=== PATIENT | female | born 1965 ===

== ENCOUNTER 2023-02-22 15:44 | Outpatient (REF) | payer MEDICARE, BC, SELFPAY ==
[2023-02-22 16:58] LABS: Abs Immature Grans 0.03 10^3/uL (0.0-0.06); Absolute Basophil Count 0.05 10^3/uL (0.0-0.2); Absolute Lymphocyte Count 1.92 10^3/uL (1.2-3.4); Absolute Monocyte Count 0.55 10^3/uL (0.1-0.8); Absolute Neutrophil Count 4.87 10^3/uL (1.2-6.7); Basophils % 0.7; Eosinophils % 2.6; HCT 37.3 % (36.0-46.0); HGB 12.2 g/dL (11.2-15.7); Immature Grans % 0.4; Lymphocytes % 25.2; MCH 27.9 pg (27.0-33.0); MCHC 32.7 % (32.0-36.0); MCV 85 fL (80-95); MPV 9.9 fL (8.0-11.0); Monocytes % 7.2; Neutrophils % 63.9; Platelet Count 316 10^3/uL (130-400); RBC 4.38 10^6/uL (3.93-5.22); RDW 13.9 % (11.7-14.6); RDW-SD 43.3 fL; WBC 7.62 10^3/uL (4.4-10.8)
[2023-02-24 07:42] LABS: IgE 56 IU/mL (<158)
[2023-02-27 20:14] LABS: Aspergillus Fumigatus IgE <0.10 kU/L (<0.70); Aspergillus Niger, IgE <0.10 kU/L (<0.70); Bermuda Grass IgE 0.83 kU/L (<0.70); Candida Albicans (Monilia),IgE <0.10 kU/L (<0.70); Cat Epithelium IgE <0.10 kU/L (<0.70); Cedar, IgE 0.36 kU/L (<0.70); Chicken Feathers IgE <0.10 kU/L (<0.70); Cockroach IgE 0.69 kU/L (<0.70); D Farinae IgE 0.23 kU/L (<0.70); D Pteronyssinus IgE <0.10 kU/L (<0.70); Dog Dander IgE <0.10 kU/L (<0.70); Eastern Sycamore IgE 0.92 kU/L (<0.70); Finch Feathers, IgE <0.10 kU/L (<0.70); Giant Ragweed IgE 0.88 kU/L (<0.70); Goat Epithelium IgE <0.10 kU/L (<0.70); Goldenrod IgE 0.71 kU/L (<0.70); Horse Dander, IgE <0.10 kU/L (<0.70); House Dust/Greer Lab, IgE <0.10 kU/L (<0.70); Milk, IgE <0.10 kU/L (<0.70); Milk, Processed, IgE <0.10 kU/L (<0.70); Mouse Serum Protein IgE <0.10 kU/L (<0.70); Oak IgE 0.98 kU/L (<0.70); Penicillium chrysogenum IgE <0.10 kU/L (<0.70); Rabbit Epithelium IgE <0.10 kU/L (<0.70); Silver Birch IgE 0.81 kU/L (<0.70); Spruce, IgE 0.31 kU/L (<0.70)
[2023-02-27 20:28] LABS: Botrytis Cinerea IgE <0.10 kU/L (<0.70); False Ragweed, IgE 0.74 kU/L (<0.70)
== END 2023-02-22 15:45 | disposition home or self-care (01) ==
LOC: LBN 15:44
PROVIDERS: PCP Physician Assistant; Visit Provider Physician Assistant Surgical
DX: J45.909 Unspecified asthma, uncomplicated (principal); E11.9 Type 2 diabetes mellitus without complications
CPT/HCPCS: 86003; 82785; 84307; 85025; 86592

== ENCOUNTER 2023-03-06 02:22 | Outpatient (CLI) | payer MEDICARE, BC, SELFPAY ==
[2023-03-06] MEDS: Methacholine 100 MG VIAL IH (17:52)
[2023-03-06] MEDS: Inhaler, Assist Device 1 EACH MC (17:52)
[2023-03-06] MEDS: Albuterol HFA 18 GM 200 PUFF INH IH (17:52)
--- NOTE | 2023-03-07 14:30 | W.PFT ---
Date of service: 03/06/23 Time of Service: 15:08 Pulmonary Function Test Result Indications: Dyspnea Interpretation Spirometry: There is no airflow limitation. Restrictive appearing spirometry. There was an 11% decrease in FEV1 with administration of 16mg/mL methacholine Lung Volumes: There is mild restrictive lung disease Diffusion Capacity: Normal diffusion Airway Pressure: Normal airway resistance Impression Mild restrictive lung disease with a normal diffusion and negative methacholine. Can consider muscle pressure testing. Clinical Correlation therefore is recommended.
== END 2023-03-06 02:23 | disposition home or self-care (01) ==
LOC: RT 02:22
PROVIDERS: PCP Physician Assistant; Visit Provider Physician Assistant Surgical
DX: J45.909 Unspecified asthma, uncomplicated (principal)
CPT/HCPCS: 94060; 94070; 94726; 94729; 94010; J7674

== ENCOUNTER → 2023-04-28 11:01 | Outpatient (BNVA) | payer MEDICARE, BC, SELFPAY | PROVIDERS: PCP Physician Assistant; Referring Provider Physician Assistant; Visit Provider Student in an Organized Health Care Education/Training Program | DX: J68.3 Other acute and subacute respiratory conditions due to chemicals, gases, fumes and vapors (principal); J98.4 Other disorders of lung; G47.33 Obstructive sleep apnea (adult) (pediatric) | CPT/HCPCS: 99214 ==

== ENCOUNTER → 2023-10-31 10:50 | Outpatient (BNVA) | payer MEDICARE, BC, SELFPAY | PROVIDERS: PCP Physician Assistant; Referring Provider Physician Assistant; Visit Provider Physician Assistant Surgical | DX: G47.33 Obstructive sleep apnea (adult) (pediatric) (principal); J68.3 Other acute and subacute respiratory conditions due to chemicals, gases, fumes and vapors; J98.4 Other disorders of lung; T78.40XA Allergy, unspecified, initial encounter | CPT/HCPCS: 99214 ==